=== PATIENT | male | born 1955 | race Caucasian/White ===

== ENCOUNTER 2017-04-03 21:43 | Emergency (ER) | payer SELFPAY ==
[2017-04-03 22:11] VITALS: BP 123/76
== END 2017-04-03 22:34 | disposition left against medical advice (07) ==
LOC: ED 21:43
DX: H57.8 Other specified disorders of eye and adnexa (principal); Z53.21 Procedure and treatment not carried out due to patient leaving prior to being seen by health care provider

== ENCOUNTER 2019-03-31 07:54 | Outpatient (CLI) | payer MEDICARE ==
--- NOTE | 2019-03-31 11:16 | Ultrasound Report ---
ULTRASOUND TESTICULAR DOPPLER COMPLETE History: Other specified disorders female genital organs. Technique: Trans-scrotal ultrasound with spectral doppler interrogation. Findings: Both testes and epididymides are normal size, contour and echotexture. Tiny epididymal head cysts are noted bilaterally measuring 3 mm on the right and 4 mm on the left. No hydrocele or varicocele. No mass or pathologic calcifications. Doppler interrogation depicts symmetric arterial flow to both testes. IMPRESSION: Tiny bilateral epididymal head cysts, otherwise, unremarkable testicular ultrasound.
== END 2019-03-31 07:55 | disposition home or self-care (01) ==
LOC: US 07:54
PROVIDERS: ATTEND Internal Medicine Hematology & Oncology
DX: N50.3 Cyst of epididymis (principal)
CPT/HCPCS: 93975

== ENCOUNTER 2019-06-19 09:46 | Outpatient (CLI) | payer MEDICARE ==
--- NOTE | 2019-06-19 12:18 | Vascular Lab Report ---
DUPLEX DOPPLER LOWER EXTREMITY VEINS, LEFT INDICATION / CLINICAL INFORMATION: R22.9: Localized swelling, mass and lump, unspecified.. TECHNIQUE: Duplex doppler imaging was performed through the veins of the left lower extremity using venous compr ession and other maneuvers. COMPARISON: None available. FINDINGS: COMMON FEMORAL VEIN: Negative. FEMORAL VEIN: Negative. POPLITEAL VEIN: Negative. CALF VEINS: Negative. ADDITIONAL FINDINGS: None. IMPRESSION: 1. No sonographic evidence for DVT in the left lower extremity. Signer Name: Dennis Luz MD Signed: 06/19/2019 12:13 PM Workstation Name: [id number]
== END 2019-06-19 09:47 | disposition home or self-care (01) ==
LOC: VAS 09:46
PROVIDERS: ATTEND Internal Medicine Hematology & Oncology
DX: R22.42 Localized swelling, mass and lump, left lower limb (principal)